=== PATIENT | male | born 1990 | race African-American/Black ===

== ENCOUNTER 2017-03-21 12:14 | Emergency (ER) | payer MEDICAID ==
[~2017-03-21] VITALS: Ht 185.4 cm; Wt 94.0 kg
[2017-03-21 13:03] VITALS: BP 121/94
== END 2017-03-21 15:36 | disposition home or self-care (01) ==
LOC: ER 12:25
DX: A60.01 Herpesviral infection of penis (principal); J45.909 Unspecified asthma, uncomplicated
CPT/HCPCS: 99283